=== PATIENT | female | born 1975 | race Caucasian/White ===

== ENCOUNTER 2021-08-30 00:15 | Emergency (ER) | payer OTHER ==
[~2021-08-30] VITALS: Ht 160 cm; Wt 94.8 kg
[2021-08-30 00:28] VITALS: BP 170/98
--- NOTE | 2021-08-30 00:28 | NUR ---
to bed ambulatory
--- NOTE | 2021-08-30 00:40 | NUR ---
PT IS A46 Y/O F BIB SELF FOR SEVERE PAIN AND SWELLING IN HER RIGHT UPPER MOUTH. PT HAD CRACKED HER TOOTHE WHILE EATING SUNDAY AND FELT IMMEDIATE PAIN. PT RT SIDE OF FACE STARTED SWELIINJG YESTERDAY AT 1730 PM. PT DENIES N/F/V/SOB/COUGH/CHEST PAIN. PT CLAIMS NO PRIOR MED HX AND STATES SHE HAS NO ALLERGIES.
[2021-08-30] MEDS ORDERED: CLINDAMYCIN 600 MG/4 ML VIAL IM ONE (00:55)
[2021-08-30] MEDS ORDERED: HYDROcodone/APAP 5/325 MG 1 TAB TAB PO ONE (00:55)
[2021-08-30] MEDS ORDERED: CLIN300C2 PO (01:00)
[2021-08-30] MEDS ORDERED: ACET-8386 PO (01:00)
[2021-08-30] MEDS ORDERED: NAPR-54 PO (01:00)
[2021-08-30] MEDS ORDERED: fentaNYL citrate 0.05 MG/ML VIAL NS ONE (02:05)
[2021-08-30 02:30] VITALS: BP 177/102
--- NOTE | 2021-08-30 02:51 | NUR ---
Patient discharged with v/s stable. Written and verbal after care instructions given and explained. Patient alert, oriented and verbalized understanding of instructions. Ambulatory with steady gait. All questions addressed prior to discharge. ID band removed. Patient advised to follow up with PMD. Rx of HYDROCODON/ ACETAMINOPHEN/ CLINDAMYCIN/ NAPROXEN given. WORK NOTE PROVIDED. Opportunity to ask questions provided and answered.
--- NOTE | 2021-08-30 02:53 | NUR ---
The patient's care was reviewed and supervised by DIANNA FELTON RN.
== END 2021-08-30 02:30 | disposition home or self-care (01) ==
LOC: MED 00:15
DX: K04.7 Periapical abscess without sinus (principal)
CPT/HCPCS: 96372; 99283; J3010; J3490